=== PATIENT | male | born 1965 | race Caucasian/White ===

== ENCOUNTER 2021-05-15 08:18 | Outpatient (RCR) | payer OTHER, MEDICARE, SELFPAY ==
[2021-05-15 09:37] LABS: Cortisol Baseline 2.71 ug/dL
[2021-05-15 10:29] LABS: Cortisol 30 Minute 7.26 ug/dL
== END 2021-08-13 23:59 | disposition home or self-care (01) ==
LOC: ANHVASCINF 08:18
PROVIDERS: Visit Provider Internal Medicine Nephrology
DX: I95.1 Orthostatic hypotension (principal)
CPT/HCPCS: 36415; 82533; 96372; J0834

== ENCOUNTER 2022-01-28 16:19 | Emergency (ER) | payer OTHER, MEDICARE, SELFPAY ==
[2022-01-28] VITALS (15 sets, daily range): BP systolic 128; BP diastolic 69; PULSE 0–68; RESP 12–18; O2SAT 97–100
--- NOTE | ~2022-01-28 | XR_ITS ---
EXAMINATION: XR chest 2V Exam Date/Time: 01/28/2022 17:26 [employer]ATIONS MANAGER HISTORY: cough; hypoglycemic episode; hx of HTN, DM Comparison: 02/21/2011. RESULT: Lines, tubes, and devices: Cholecystectomy clips. Coronary artery calcification/stenting. Lungs and pleura: Clear. Cardiomediastinal silhouette: Stable. Other: No acute osseous or upper abdominal finding. IMPRESSION: No acute cardiopulmonary process. Reviewed, dictated and finalized at location K. [employer] OPERATIONS MANAGER
--- NOTE | 2022-01-28 16:31 | ED.GENADULT ---
HPI - General Adult General Chief complaint: Recheck/Abnormal Lab/Rx Stated complaint: low blood sugar Time Seen by Provider: 01/28/22 16:19 History of Present Illness HPI narrative: 56-year-old male with history of diabetes with an insulin pump and chronic kidney disease on peritoneal dialysis presented to the emergency department for evaluation of hypoglycemia. Patient had decreased responsiveness at home. Family called EMS. On arrival to the scene patient had a blood sugar of 27. Initially with some difficulty establishing an IV but by the time the patient got to the IV IV had been established and patient has been started on dextrose. Upon arrival to the ED patient did have an improvement of her mental status. Patient states that he has been eating and drinking well. Patient states he has not been sleeping well the last few days. Patient denies any recent illnesses and denies any recent issues with his pump. Patient is to have multiple issues controlling his blood sugar until he started using the insulin pump. Patient states that today he laid down for a nap and slept through lunch and did not hear his insulin pump alarming. Related Data Allergies Allergy/AdvReac Type Severity Reaction Status Date / Time minoxidil Allergy Unknown Verified 05/03/15 14:04 Review of Systems Review of Systems: CONSTITUTIONAL: Hypoglycemia and altered mental status EYES: Denies visual changes, redness, or discharge. ENT: Denies rhinorrhea, congestion, sore throat, or otalgia. CARDIOVASCULAR: Denies chest pain, palpitations, or edema. RESPIRATORY: Denies cough or dyspnea. GASTROINTESTINAL: Denies abdominal pain, nausea, vomiting, or diarrhea. GENITOURINARY: Denies dysuria or hematuria. SKIN: Denies rash or itching. MUSCULOSKELETAL: Denies back pain, joint pain, or myalgia. NEUROLOGIC: Denies headache, numbness, or weakness. Exam Narrative: APPEARANCE: Well appearing, no pain, no distress, well-nourished. HEAD: normocephalic, atraumatic. EYES: PERRLA/EOMI, conjunctivae clear. NOSE: Normal no drainage THROAT: Pharynx clear, no exudate. NECK: Supple. No adenopathy, no masses. RESPIRATORY: Airway patent, respirations nonlabored. Clear to auscultation bilaterally, no rales, rhonchi, wheezing. CARDIOVASCULAR: Regular rate and rhythm without murmurs rubs or gallops. ABDOMINAL: Soft, nontender, nondistended, normal bowel sounds MUSCULOSKELETAL: Moves all extremities. Strength/ROM intact, No edema, No calf tenderness. NEURO: Alert. Cranial nerves II through XII intact. Grossly intact SKIN: Warm, dry. Normal Color Course Course Emergency Course: Patient does feel significantly improved. Patient's blood sugar and mental status have both improved. Patient suspects that his blood sugar was low due to missing the nail. Since eating patient's blood sugar has been stable and patient has been at his normal baseline. Patient was comfortable with plan for discharge and close follow-up. Reevaluation(s) Reevaluation #1: Patient continues to feel improved. Patient does attribute his hypoglycemia to falling asleep, sleeping through a meal and not hearing his glucose alarm. With elevation of the patient's blood glucose patient is back to his normal baseline. Patient was negative for COVID and flu. Patient's x-ray showed no acute cardiopulmonary malady. Patient is comfortable to plan with close follow-up with primary care physician. All question concerns were addressed. Vital Signs Vital signs: Vital Signs Pulse Rate 56 L 01/28/22 16:25 Respiratory Rate 12 01/28/22 16:25 Pulse Oximetry 99 01/28/22 16:25 Pulse Rate 68 01/28/22 19:45 Respiratory Rate 15 01/28/22 19:45 Blood Pressure 128/69 01/28/22 19:45 Pulse Oximetry 97 01/28/22 19:45 Oxygen Delivery Room Air 01/28/22 16:27 Medical Decision Making Vital Signs Vital Signs: Vital Signs Pulse Rate 56 L 01/28/22 16:25 Respiratory Rate 12 01/28/22 16:25 Pulse Ox
[2022-01-28 17:26] LABS: Glucose Point of Care 215 mg/dl (65-105)
[2022-01-28 17:43] LABS: Influenza A QL RT-PCR Negative (Negative); Influenza B QL RT-PCR Negative (Negative); SARS-CoV-2 RNA PCR Negative
[2022-01-28 17:52] LABS: Basophils Absolute Auto 0.1 K/mm3 (0.0-0.1); Basophils Percent Auto 0.7 % (0.2-1.2); Eosinophils Percent Auto 7.9 % (0-4.4); Hematocrit 32.8 % (42.0-52.0); Hemoglobin 10.2 g/dL (14.0-18.0); Immature Granulocyte Absolute 0.19 K/mm3 (0.00-0.031); Immature Granulocyte Percent A 1.6 % (0-0.5); Lymphocytes Absolute Auto 1.19 K/mm3 (0.9-3.2); Lymphocytes Percent Auto 9.8 % (18.3-44.2); Mean Corpuscular HGB Conc 31.1 g/dl (32-36); Mean Corpuscular Hemoglobin 31.8 pg (26-34); Mean Corpuscular Volume 102.2 fl (80-100); Mean Platelet Volume 9.1 fl (7.4-10.4); Monocytes Absolute Auto 1.3 K/mm3 (0.1-0.6); Monocytes Percent Auto 11.1 % (2.6-8.5); Neutrophils Absolute Auto 8.3 K/mm3 (1.3-6.7); Neutrophils Percent Auto 68.9 % (45.5-73.1); Platelet Count Result 385 k/mm3 (150-375); Red Blood Count 3.21 M/mm3 (4.6-6.20); Red Cell Distribution Width 12.8 % (11.5-14.5); White Blood Count 12.1 K/mm3 (4.5-10.0)
[2022-01-28 18:04] LABS: Alanine Aminotransferase 13 U/L (6-50); Albumin Level 3.7 g/dL (3.5-5.1); Alkaline Phosphatase 70 U/L (38-126); Anion Gap 13 mmol/L (8-16); Aspartate Amino Transferase 22 U/L (17-59); Bilirubin,Total 0.5 mg/dL (0.2-1.3); Blood Urea Nitrogen 39 mg/dL (9-20); Calcium 9.2 mg/dL (8.4-10.2); Carbon Dioxide 27 mmol/L (22-30); Chloride 94 mmol/L (98-107); Estimated CRCL calculation 6 ml/min; Estimated Glomerular Filt Rate 5; Glucose 217 mg/dL (65-110); Potassium 4.5 mmol/L (3.4-5.0); Sodium 134 mmol/L (137-145)
== END 2022-01-28 19:21 | disposition home or self-care (01) ==
PROVIDERS: Emergency Provider Emergency Medicine
DX: E11.649 Type 2 diabetes mellitus with hypoglycemia without coma (principal); Z20.822 Contact with and (suspected) exposure to COVID-19; E11.22 Type 2 diabetes mellitus with diabetic chronic kidney disease; N18.6 End stage renal disease; Z99.2 Dependence on renal dialysis; Z79.4 Long term (current) use of insulin; Z96.41 Presence of insulin pump (external) (internal)
CPT/HCPCS: 36415; 71046; 80053; 82948; 85025; 87636; 99283